=== PATIENT | female | born 1945 | race Caucasian/White ===

== ENCOUNTER 2017-03-15 07:40 | Day surgery (SDC) | payer OTHER ==
--- NOTE | ~2017-03-15 | EGD ---
EGD REPORT [facility] [address] [id number] NAME: JAZ CRUMP : [birth year] STATUS : [facility] [place] PAT#: [id number] AGE: 71 ADM/REG DATE : 03/15/17 MR#: [id number] REPORT SERV DATE: 03/15/17 DICTATED BY: FARNAZ GU DATE: 03/15/17 REPORT STATUS : Draft [facility] DATE: 03/15/17 End[facility] Center Patient Name: Jaz Crump Date of : 1945 Attending MD: FARNAZ GU MD Procedure Date No Time: 03/15/2017 Procedure: Upper GI endoscopy Indications: Follow-up of acute gastric ulcer Referring MD: MAX DE JESUS Medicines: See the Anesthesia note for documentation of the administered medications Complications: No immediate complications. Procedure: Pre-Anesthesia Assessment: - ASA Grade Assessment: IV - A patient with severe systemic disease that is a constant threat to life. After obtaining informed consent, the endoscope was passed under direct vision. Throughout the procedure, the patient's blood pressure, pulse, and oxygen saturations were monitored continuously. The GIF [id number] was introduced through the mouth, and advanced to the second part of duodenum. The upper GI endoscopy was accomplished without difficulty. The patient tolerated the procedure well. Findings: The examined duodenum was normal. Mild inflammation was found in the gastric antrum. Biopsies were taken with a cold forceps for histology. The cardia and gastric fundus were normal on retroflexion. A 2 cm hiatus hernia was present. Impression: - Normal examined duodenum. - Gastritis. Biopsied. - Hiatus hernia. Recommendation: - Patient has a contact number available for emergencies. The signs and symptoms of potential delayed complications were discussed with the patient. Return to normal activities tomorrow. Written discharge instructions were provided to the patient. - Regular diet. - Continue present medications. - FOR YOUR BIOPSY RESULTS: Please go to [email or web address] and register to receive your results via the portal. Your biopsy results will be EGD REPORT [address] [address] NAME: JAZ CRUMP : [birth year] STATUS : [facility] [place] PAT#: [id number] AGE: 71 ADM/REG DATE : 03/15/17 MR#: [id number] REPORT SERV DATE: 03/15/17 DICTATED BY: FARNAZ GU DATE: 03/15/17 REPORT STATUS : Draft TRANSCRIBED BY: [employer] DATE: 03/15/17 posted there in about 7 to 10 days. IF you do not see result in 10 days, call office. - Return to my office PRN. Procedure Code(s): --- Professional --- 40460, Esophagogastroduodenoscopy, flexible, transoral; with biopsy, single or multiple Diagnosis Code(s): --- Professional --- K29.70, Gastritis, unspecified, without bleeding K44.9, Diaphragmatic hernia without obstruction or gangrene K25.3, Acute gastric ulcer without hemorrhage or perforation CPT copyright 2013 [employer]. All rights reserved. The codes documented in this report are preliminary and upon medical insurance coder review may be revised to meet current compliance requirements. Farnaz Gu MD FARNAZ GU MD 03/15/2017 9:38 AM This report has been signed electronically. Number of Addenda: 0 Note Initiated On: 03/15/2017 9:24 AM Scope Withdrawal Time 0 hours 0 minutes 0 seconds [id number] [place] [id number]
[~2017-03-15 07:40] MED LIST: ACET500CAP PO; ALBUTEROL0.083 % INH; ALBUTEROL0.63 MG/3 INH; ALBUTEROL5 INH; ASAB PO; BETAPACE80 PO; BREO ELLIPTA INH; C1 PO; CARTIA XT120 MG/24 PO; CENTRUM PO; COUMADIN6 MG PO; DILACOR XR PO; FERROUS SULF325 M1 PO; HALF81 PO; HCTZ12.5 PO; HYDROCHLOROT12.5 MG PO; IRON325 MG PO; LIPITOR10 PO; LOP25 PO; MULTIPLE VIT PO; OCEAN NAS; PRIN10 PO; PRIN20 PO; PRINZIDE1 TA1 PO; PROTONIX PO; PROVENTSOL INH; SPIRIVA INH; SYMBICORT 160/41 INH INH; TRILEP150 PO; VENTOLIN HFA INH; Z-PAK PO; ZESTORETIC PO; ZESTRIL20 MG PO
== END 2017-03-15 23:59 | disposition home health service (06) ==
LOC: DMU 07:40
PROVIDERS: Internal Medicine Gastroenterology
PROC: 0DB68ZX Excision of Stomach, Via Natural or Artificial Opening Endoscopic, Diagnostic (ICD-10-PCS; principal; 2017-03-15 10:00)
DX: K29.50 Unspecified chronic gastritis without bleeding (principal); K44.9 Diaphragmatic hernia without obstruction or gangrene; J44.9 Chronic obstructive pulmonary disease, unspecified; I48.91 Unspecified atrial fibrillation; I10 Essential (primary) hypertension; G40.909 Epilepsy, unspecified, not intractable, without status epilepticus; F41.9 Anxiety disorder, unspecified; M13.841 Other specified arthritis, right hand; M13.842 Other specified arthritis, left hand; Z86.73 Personal history of transient ischemic attack (TIA), and cerebral infarction without residual deficits; Z79.899 Other long term (current) drug therapy; Z87.891 Personal history of nicotine dependence; Z90.710 Acquired absence of both cervix and uterus; Z98.890 Other specified postprocedural states
CPT/HCPCS: 88305